=== PATIENT | female | born 1960 | race Caucasian/White ===

== ENCOUNTER → 2020-05-18 08:43 | Outpatient (BNVA) | payer BC, SELFPAY | PROVIDERS: PCP Family Medicine; Visit Provider Family Medicine | DX: I10 Essential (primary) hypertension (principal); E78.5 Hyperlipidemia, unspecified; E66.9 Obesity, unspecified | CPT/HCPCS: 80053; 80061; 82044; 82306; 85025 ==

== ENCOUNTER → 2020-07-07 08:51 | Outpatient (BNVA) | payer BC, SELFPAY | PROVIDERS: PCP Family Medicine; Visit Provider Family Medicine | DX: E78.5 Hyperlipidemia, unspecified (principal) | CPT/HCPCS: 80053 ==

== ENCOUNTER → 2020-08-09 11:01 | Outpatient (BNVA) | payer BC, SELFPAY | PROVIDERS: PCP Family Medicine; Visit Provider Obstetrics & Gynecology | DX: Z01.419 Encounter for gynecological examination (general) (routine) without abnormal findings (principal) | CPT/HCPCS: 82270 ==

== ENCOUNTER → 2020-08-18 07:22 | Outpatient (BNVA) | payer BC, SELFPAY | PROVIDERS: PCP Family Medicine; Visit Provider Family Medicine | DX: E78.5 Hyperlipidemia, unspecified (principal) | CPT/HCPCS: 80061 ==

== ENCOUNTER → 2020-08-23 15:35 | Outpatient (BNVA) | payer BC, SELFPAY | PROVIDERS: PCP Family Medicine; Visit Provider Nurse Practitioner Family | DX: Z11.59 Encounter for screening for other viral diseases (principal) | CPT/HCPCS: 87635 ==

== ENCOUNTER 2020-09-02 07:44 | Outpatient (CLI) | payer BC, SELFPAY ==
--- NOTE | 2020-09-02 07:50 | MM_ITS ---
WS: [id number] Exam: [place] [id number] Date/Time of Exam: 09/02/2020 7:55 AM Reason For Exam: SCREENING VIEWS: MLO and CC views both breasts. Comparison made with prior exam of 08/27/2018. Findings: There was no sign of mass, architectural distortion or suspicious calcification in either breast. Sca ttered fibroglandular densities. MM/[place] [id number] Impression: BI-RADS: 2-Benign FOLLOW-UP: 1 Year Follow-up This mammogram was also analyzed by the Computer Aided Detection System R2 Imag e Management Accounts Manager.
== END 2020-09-02 07:45 | disposition home or self-care (01) ==
LOC: RADSHAW 07:46
PROVIDERS: PCP Family Medicine; Visit Provider Obstetrics & Gynecology
DX: Z12.31 Encounter for screening mammogram for malignant neoplasm of breast (principal)
CPT/HCPCS: 77067

== ENCOUNTER → 2020-11-17 08:36 | Outpatient (BNVA) | payer BC, SELFPAY | PROVIDERS: PCP Family Medicine; Visit Provider Family Medicine | DX: I10 Essential (primary) hypertension (principal); M25.50 Pain in unspecified joint | CPT/HCPCS: 80053; 85025; 85651; 86038; 86140; 86431 ==

== ENCOUNTER → 2021-02-09 08:24 | Outpatient (BNVA) | payer BC, SELFPAY | PROVIDERS: PCP Family Medicine; Visit Provider Family Medicine | DX: I10 Essential (primary) hypertension (principal); E78.5 Hyperlipidemia, unspecified; L57.0 Actinic keratosis | CPT/HCPCS: 80053; 80061 ==

== ENCOUNTER → 2021-08-22 09:45 | Outpatient (BNVA) | payer BC, SELFPAY | PROVIDERS: PCP Family Medicine; Visit Provider Family Medicine | DX: I10 Essential (primary) hypertension (principal) | CPT/HCPCS: 80053; 82043 ==

== ENCOUNTER → 2021-10-02 14:54 | Outpatient (BNVA) | payer BC, SELFPAY | PROVIDERS: PCP Family Medicine; Visit Provider Family Medicine | DX: J02.9 Acute pharyngitis, unspecified (principal) | CPT/HCPCS: 87880 ==

== ENCOUNTER 2021-10-03 08:30 | Outpatient (CLI) | payer BC, SELFPAY ==
--- NOTE | 2021-10-03 08:30 | MM_ITS ---
WS: [id number] BILATERAL SCREENING DIGITAL MAMMOGRAM WITH CAD HISTORY: Z12.39 - Encounter for other screening for malignant neoplasm... COMPARISON: 05/03/2020 and 08/29/2019 Bilateral CC and MLO views submitted. Computer aided detection analyzed. Breast composition: There are scattered areas of fibroglandular density. No suspicious masses, microc alcifications or architectural distortion. MM/[place] [id number] IMPRESSION: BI-RADS: 1-Negative FOLLOW UP: 1 Year Follow-up
== END 2021-10-03 08:31 | disposition home or self-care (01) ==
LOC: RADSHAW 08:32
PROVIDERS: PCP Family Medicine; Visit Provider Obstetrics & Gynecology
DX: Z12.39 Encounter for other screening for malignant neoplasm of breast (principal)
CPT/HCPCS: 77067

== ENCOUNTER → 2022-07-17 09:46 | Outpatient (BNVA) | payer BC, SELFPAY | PROVIDERS: PCP Family Medicine; Visit Provider Family Medicine | DX: I10 Essential (primary) hypertension (principal); Z13.6 Encounter for screening for cardiovascular disorders; E78.5 Hyperlipidemia, unspecified; K21.9 Gastro-esophageal reflux disease without esophagitis; F33.42 Major depressive disorder, recurrent, in full remission | CPT/HCPCS: 80053; 80061; 82043; 85025 ==

== ENCOUNTER → 2022-10-14 10:12 | Outpatient (BNVA) | payer BC, SELFPAY | PROVIDERS: PCP Family Medicine; Visit Provider Registered Nurse Neonatal Intensive Care | DX: R50.9 Fever, unspecified (principal); J10.1 Influenza due to other identified influenza virus with other respiratory manifestations | CPT/HCPCS: 87400 ==

== ENCOUNTER → 2022-12-04 11:00 | Outpatient (BNVA) | payer BC, SELFPAY | PROVIDERS: PCP Family Medicine; Visit Provider Obstetrics & Gynecology | DX: Z12.4 Encounter for screening for malignant neoplasm of cervix (principal); Z01.419 Encounter for gynecological examination (general) (routine) without abnormal findings; D07.1 Carcinoma in situ of vulva | CPT/HCPCS: 87624 ==

== ENCOUNTER 2022-12-22 13:06 | Outpatient (CLI) | payer BC, SELFPAY ==
--- NOTE | 2022-12-22 13:17 | MM_ITS ---
WS: [id number] BILATERAL 3D TOMOSYNTHESIS DIGITAL SCREENING MAMMOGRAPHY WITH CAD CLINICAL INFORMATION: Z12.39 - Encounter for other screening for malignant neop... HISTORY: Screening mammogram. No current complaints. COMPARISON: October 03, 2021 TECHNIQUE: Bilateral CC and MLO views. FINDINGS: Scattered fibroglandular densities bilaterally. No suspicious focal mass, asymmetry, calcifications, or architectural distortion. No evidence of malignancy. MM/[place] [id number] IMPRESSION: BI-RADS: 1-Negative FOLLOW UP: 1 Year Follow-up Recommend return to annual screening mammography.
== END 2022-12-22 13:07 | disposition home or self-care (01) ==
PROVIDERS: PCP Family Medicine; Visit Provider Obstetrics & Gynecology
DX: Z12.31 Encounter for screening mammogram for malignant neoplasm of breast (principal)
CPT/HCPCS: 77063; 77067

== ENCOUNTER → 2023-02-06 09:28 | Outpatient (BNVA) | payer BC, SELFPAY | PROVIDERS: PCP Family Medicine; Visit Provider Family Medicine | DX: I10 Essential (primary) hypertension (principal); F32.9 Major depressive disorder, single episode, unspecified; K21.9 Gastro-esophageal reflux disease without esophagitis | CPT/HCPCS: 80053 ==

== ENCOUNTER → 2023-08-07 09:56 | Outpatient (BNVA) | payer BC, SELFPAY | PROVIDERS: PCP Family Medicine; Visit Provider Family Medicine | DX: I10 Essential (primary) hypertension (principal); E78.5 Hyperlipidemia, unspecified; F33.42 Major depressive disorder, recurrent, in full remission; K21.9 Gastro-esophageal reflux disease without esophagitis | CPT/HCPCS: 80053; 80061; 82043; 85025 ==

== ENCOUNTER 2024-01-17 11:12 | Outpatient (CLI) | payer BC, SELFPAY ==
--- NOTE | 2024-01-17 11:30 | MM_ITS ---
WS: [id number] SCREENING DIGITAL TOMOSYNTHESIS MAMMOGRAM WITH CAD HISTORY: Z12.31 - Encounter for screening mammogram for malignant ... COMPARISON: 12/22/2022 and 10/03/2021 Bilateral CC and MLO with tomosynthesis views submitted. Synthetic mammography reviewed. Computer aid ed detection analyzed. Breast composition: There are scattered areas of fibroglandular density. No suspicious masses, microc alcifications or architectural distortion. IMPRESSION: MM/[place] [id number] BI-RADS: 1-Negative FOLLOW UP: 1 Year Follow-up
== END 2024-01-17 11:13 | disposition home or self-care (01) ==
LOC: RAD 11:12
PROVIDERS: PCP Family Medicine; Visit Provider Obstetrics & Gynecology
DX: Z12.31 Encounter for screening mammogram for malignant neoplasm of breast (principal)
CPT/HCPCS: 77063; 77067

== ENCOUNTER 2025-03-03 15:40 | Outpatient (CLI) | payer BC, SELFPAY ==
--- NOTE | 2025-03-03 15:51 | XRR_ITS ---
PROCEDURE INFORMATION: Exam: XR Left Shoulder Exam date and time: 03/03/2025 3:57 PM Age: 64 years old Clinical indication: Pain; Shoulder; Left; Additional info: Left shoulder pain TECHNIQUE: Imaging protocol: Radiologic exam of the left shoulder. Views: 2 or more views. COMPARISON: CR XR cervical spine 3V* [id number] 03/03/2025 3:57 PM FINDINGS: Bones/joints: Alignment is normal. Joint spaces are preserved. No acute fracture. Soft tissues: Visible soft tissues are unremarkable. XR/XR shoulder LT min 2V* [id number] IMPRESSION: No acute findings.
--- NOTE | 2025-03-03 15:51 | XRR_ITS ---
PROCEDURE INFORMATION: Exam: XR Cervical Spine Exam date and time: 03/03/2025 3:57 PM Age: 64 years old Clinical indication: Radicular pain (radiculopathy); Cervical region; X2-3 weeks pain in posterior shoulder and low neck that radiates numbness and tingling down to hand; Additional info: Cervical radiculopathy TECHNIQUE: Imaging protocol: Radiologic exam of the cervical spine. Views: 2 or 3 views. COMPARISON: CR XR shoulder LT min 2V* [id number] 03/03/2025 3:57 PM FINDINGS: Bones/joints: Spinal alignment is normal. Vertebral body height is maintained. There is mild disc narrowing at C6-C7. There is mild uncovertebral spondylosis at C6-C7. There is mild lower cervical facet spondylosis. No acute fracture. Soft tissues: Visible soft tissues are unremarkable. XR/XR cervical spine 3V* [id number] IMPRESSION: Mild cervical disc degeneration.
== END 2025-03-03 15:41 | disposition home or self-care (01) ==
PROVIDERS: PCP Family Medicine; Visit Provider Family Medicine
DX: M54.12 Radiculopathy, cervical region (principal); M25.512 Pain in left shoulder; G89.29 Other chronic pain; M50.323 Other cervical disc degeneration at C6-C7 level; M47.892 Other spondylosis, cervical region
CPT/HCPCS: 72040; 73030

== ENCOUNTER → 2025-03-04 07:44 | Outpatient (BNVA) | payer BC, SELFPAY | PROVIDERS: PCP Family Medicine; Visit Provider Family Medicine | DX: G40.909 Epilepsy, unspecified, not intractable, without status epilepticus (principal); I10 Essential (primary) hypertension; R25.2 Cramp and spasm | CPT/HCPCS: 80053; 80061; 80177; 83735; 84443; 85025 ==

== ENCOUNTER 2025-03-12 20:35 | Emergency (ER) | payer BC, SELFPAY ==
--- NOTE | 2025-03-12 20:41 | ECG_ITS ---
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 Measurements Intervals [place] Rate: 50 P: 87 TN: 141 QRS: 53 QRSD: 94 T: 61 QT: 455 QTc: 419 Interpretive Statements SINUS BRADYCARDIA No previous ECG available for comparison Electronically Signed On 03-13-2025 13:36:30 CDT by Rafael Womack M.D. [id number]
[2025-03-12 20:49] VITALS: BP 186/83; PULSE 57; RESP 16; TEMP 36.7; O2SAT 99; BMI 39.4
--- NOTE | 2025-03-12 23:33 | XRR_ITS ---
PROCEDURE INFORMATION: Exam: XR Chest Exam date and time: 03/12/2025 11:35 PM Age: 64 years old Clinical indication: Pain; Chest pressure; Additional info: Chest pain TECHNIQUE: Imaging protocol: Radiologic exam of the chest. Views: 1 view. COMPARISON: CR XR cervical spine 3V* [id number] 03/03/2025 3:57 PM FINDINGS: Lungs: Unremarkable. No consolidation. Pleural spaces: Unremarkable. No pleural effusion. No pneumothorax. Heart/Mediastinum: Cardiomegaly. Bones/joints: Unremarkable. XR/XR chest 1V portable [id number] IMPRESSION: Cardiomegaly, negative for infiltrate.
--- NOTE | 2025-03-12 23:33 | ECG_ITS ---
[facility]: [facility]25-[facility]-12 Pat Name: Destinee Sanchez Department: Room: Gender: Female Clerk Funeral Detail: : 1960 Requested By: Jesus Medina Order Number: [id number] Conrad MD: Rafael Womack M.D. Measurements Intervals [place] Rate: 48 P: 86 [place]: 151 QRS: 54 QRSD: 101 T: 55 QT: 451 QTc: 405 Interpretive Statements SINUS BRADYCARDIA Compared to ECG 03/12/2025 20:44:22 No significant changes Electronically Signed On 03-13-2025 13:33:18 CDT by Rafael Womack M.D. [email or web address]
[2025-03-13 00:06] LABS: Basophils % 0.2 %; Eosinophils # 0.1 10^3/uL (0.0-0.8); Hematocrit 40.7 % (36-47); Lymphocytes # 2.6 10^3/uL (0.8-4.8); Lymphocytes % 41.9 %; Mean Corpuscular HGB Conc 33.7 g/dL (30-55); Mean Corpuscular Hemoglobin 29.8 pg (27-33); Mean Corpuscular Volume 88.7 fl (85-98); Mean Platelet Volume 10.3 fL (7.4-10.4); Monocytes # 0.4 10^3/uL (0.2-0.9); Monocytes % 6.7 %; Neutrophils # 3.16 10^3/uL (1.8-7.7); Nucleated Red Blood Cells % 0 %; Platelet Count 213 10^3/cmm (157-399); Red Blood Count 4.59 10^6/uL (3.85-5.65); Red Cell Distribution Width 12.4 % (12.1-15.1)
[2025-03-13 00:20] VITALS: PULSE 47; RESP 18; O2SAT 100
[2025-03-13 00:25] LABS: Troponin(5th) Baseline < 6 ng/L (0-10)
[2025-03-13 00:33] LABS: Alanine Aminotransferase 20 U/L (0-33); Albumin Level 4.7 g/dL (3.5-5.2); Alkaline Phosphatase 84 U/L (35-105); Aspartate Amino Transferase 19 U/L (0-32); Blood Urea Nitrogen 22 mg/dL (8-23); Calcium 9.6 mg/dL (8.5-10.5); Carbon Dioxide 25 mmol/L (22-29); Chloride 101 mmol/L (98-107); Creatinine Clr Calc Pharmacy 98.0693; Globulin 2.1 g/dL (1.3-4.6); Glomerular Filtration Rate 84.8 mL/min (90-130); Glucose 104 mg/dL (65-115); NT Pro B Type Natriuretic Pept 225 pg/mL (0-125); Osmolality Calculated 294 mOsm/kg (285-295); Sodium 140 mmol/L (136-145); Total Bilirubin 0.5 mg/dL (0.15-1.2); Total Protein 6.8 g/dL (6.6-8.7)
[2025-03-13 01:17] VITALS: PULSE 49; O2SAT 100
--- NOTE | 2025-03-13 01:30 | ECG_ITS ---
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
[2025-03-13 02:15] LABS: Troponin 5 2HR < 6.0 ng/L (0-10); Troponin 5 2HR Delta 0 ABS# (0-10)
--- NOTE | 2025-03-13 02:20 | ED_ITS ---
HPI - Chest Pain 2 General: Chief Complaint: Chest Pain Stated Complaint: CP Time Seen by Provider: 03/12/25 23:32 History of Present Illness: Patient presents emerged part with complaint of chest pain. Patient had about 5-minute episode of left-sided chest pain that radiated down the left arm. She does have chest pain quite frequently but states that normally only lasts about a minute or 2 this time lasted longer. She states that she had a stress test done several months ago but never followed up on results. She is currently asymptomatic. Related Data Home Medications ?Medication ?Instructions ?Recorded ?Confirmed aspirin 81 mg tablet,delayed 81 mg PO DAILY 02/17/20 0 03/03/25 release levetiracetam 500 mg tablet 500 mg PO BID 02/17/20 (Mei) Previous Rx's ?Medication ?Instructions ?Recorded fluoxetine 20 mg capsule See Rx Instructions .Route 0 03/03/25 .COMPLEX #90 caps hydrochlorothiazide 25 mg tablet 25 mg PO DAILY #90 ta bs 03/03/25 losartan 50 mg tablet See Rx Instructions .Route 0 03/03/25 .COMPLEX #90 tabs omeprazole 40 mg capsule,delayed See Rx Instructions . 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 Seizure disorder Reports history of petit-mal seizures. Depression Dyslipidemia Essential hypertension Surgical History S/P genital surgery (04/22/19) Wide local excision of right and left labia majora. Performed by Dr. Pacheco at [facility] in [place], [place]. Path: MERYL 3 Family History Mother Hypertension CAD (coronary artery disease) Diabetes Brother Stroke Father CAD (coronary artery disease) Social History Smoking and tobacco/nicotine status: former use of tobacco/nicotine Quit status (tobacco/nicotine): has quit using Former quit date comment: 13PY, quit in 2019 Alcohol intake: current Alcohol intake frequency: few times a month Substance/Drug Use: never Physical Exam 2 Const: COMMON NORMALS: no acute distress, average body habitus, patient oriented x3, no limitations, healthy appearing, alert and well nourished Neck/C-Spine: COMMON NORMALS: no JVD Resp: COMMON NORMALS: normal respiratory effort, No retractions, No use of accessory muscles, clear to auscultation bilaterally and percussion normal A USCULTATION: clear to auscultation bilaterally PERCUSSION: percussion normal Cardio: COMMON NORMALS: no JVD, regular rate, regular rhythm, S1 normal heart sound present, S2 normal heart sound present, No gallops present (Cardio), No clicks present (Cardio), No murmurs present (Cardio), No rub (Cardio) and Peripheral pulses 2+ throughout RATE: regular rate RHYTHM: regular rhythm HEART SOUNDS: S1 normal heart sound present and S2 normal heart sound present PERIPHERAL PULSES: Peripheral pulses 2+ throughout GI: COMMON NORMALS: Normal to inspection, nondistended, normoactive bowel sounds present, Soft to palpation, non-tender, No hepatosplenomegaly present, no masses and no bruits PALPATION: Yes Soft to palpation and Yes No hepatosplenomegaly present Neuro: COMMON NORMALS: patient oriented x3 SENSORIUM/ORIENTATION: Yes alert Course 2 Vital Signs: Vital signs: Vital Signs Temperature 98.0 F 03/12/25 20:49 Pulse Rate 49 L 03/13/25 01:17 Respiratory Rate 18 03/13/25 00:20 Blood Pressure 186/83 03/12/25 20:49 Pulse Oximetry 100 03/13/25 01:17 Oxygen Delivery Me thod Room Air 03/13/25 01:17 MDM - Chest Pain Medical Decision Making Patient with 5 minutes of chest pain earlier tonight that radiated down the left arm. Symptoms resolved prior to arrival to the ER. Patient has no symptoms here. EKG shows nonspecific ST and T wave changes no acute ischemic changes. Troponin is negative x 2. Patient has no other significant abnormality noted on labs. Discussed with patient that she needs to follow back up and get further evaluation by cardiology and to follow-up on her stress test result but at that point do not see any indication for admission. Lab Data 03/12/25 23:59 03/12/25 23:59 Radiology Impressions Chest X-Ray 03/12/25 23:33 IMPRESSION: Cardiomegaly, negative for infiltrate. Laboratory Results WBC 6.30 10^3/uL (3.29-11.43) 03/12/25 23:59 RBC 4.59 10^6/uL (3.85-5.65) 03/12/25 23:59 Hgb 13.70 g/dL (11.27-16.99) 03/12/25 23:59 Hct 40.7 % (36-47) 03/12/25 23:59 MCV 88.7 fl (85-98) 03/12/25 23:59 MCH 29.8 pg (27-33) 03/12/25 23: MCHC 33.7 g/dL (30-55) 03/12/25 23:59 RDW 12.4 % (12.1-15.1) 03/12/25 23:59 Plt Count 213 10^3/cmm (157-399) 03/12/25 23:59 MPV 10.3 fL (7.4-10.4) 03/12/25 23:59 Neut % (Auto) 50.0 % 03/12/25 23:59 Lymph % (Auto) 41.9 % 03/12/25 23:59 [place] % (Auto) 6.7 % 03/12/25 23:59 Eos % (Auto) 1.0 % 03/12/25 23:59 Baso % (Auto) 0.2 % 03/12/25 23:59 Neut # (Auto) 3.16 10^3/uL (1.8-7.7) 03/12/25 23:59 Lymph # (Auto) 2.6 10^3/uL (0.8-4.8) 03/12/25 23:59 [place] # (Auto) 0.4 10^3/uL (0.2-0.9) 03/12/25 23:59 Eos # (Auto) 0.1 10^3/uL (0.0-0.8) 03/12/25 23:59 Baso # (Auto) 0.0 10^3/uL (0.0-0.1) 03/12/25 23:59 Nucleated RBC % (auto) 0 % 03/12/25 23:59 Nucleated RBCs # 0.0 /100WBC 03/12/25 23:59 Sodium 140 mmol/L (136-145) 03/12/25 23:59 Potassium 4.0 mmol/L (3.5-5.1) 03/12/25 23:59 Chloride 101 mmol/L (98-107) 03/12/25 23:59 Carbon Dioxide 25 mmol/L (22-29) 03/12/25 23:59 Anion Gap 18.0 (5-19) 03/12/25 23:59 BUN 22 mg/dL (8-23) 03/12/25 23:59 Creatinine 0.7 mg/dL (0.5-0.9) 03/12/25 23:59 GFR Calculation 84.8 mL/min (90-130) L 03/12/25 23:59 Glucose 104 mg/dL (65-115) 03/12/25 23:59 Calculated Osmolality 294 mOsm/kg (285-295) 03/12/25 23:59 Calcium 9.6 mg/dL (8.5-10.5) 03/12/25 23:59 Total Bilirubin 0.5 mg/dL (0.15-1.2) 03/12/25 23:59 AST 19 U/L (0-32) 03/12/25 23:59 ALT 20 U/L (0-33) 03/12/25 23:59 Alkaline Phosphatase 84 U/L (35-105) 03/12/25 23:59 Troponin T Baseline < 6 ng/L (0-10) 03/12/25 23:59 Troponin T 120 Minute < 6.0 ng/L (0-10) 03/13/25 01:51 Delta Troponin T 0 ABS# (0-10) 03/13/25 01:51 NT-Pro-B Natriuret Pep 225 pg/mL (0-125) H 03/12/25 23:59 Total Protein 6.8 g/dL (6.6-8.7) 03/12/25 23:59 Albumin 4.7 g/dL (3.5-5.2) 03/12/25 23:59 Globulin 2.1 g/dL (1.3-4.6) 03/12/25 23:59 All radiology interpretation(s) finalized by discharge Discharge Plan Discharge Patient Disposition: Home Clinical Impression: Chest pain Condition: Stable Prescriptions: No Action levetiracetam [Keppra] 500 mg tablet 500 mg PO BID aspirin 81 mg tablet,delayed release (DR/EC) 81 mg PO DAILY omeprazole 40 mg capsule,delayed release(DR/EC) See Rx Instructions .ROUTE .COMPLEX Qty: 90 1RF Dose Instruction: Take 1 capsule by mouth once daily Rx Instructions: Take 1 capsule by mouth once daily fluoxetine 20 mg capsule See Rx Instructions .ROUTE .COMPLEX Qty: 90 1RF Dose Instruction: Take 1 capsule by mouth once daily Rx Instructions: Take 1 capsule by mouth once daily hydrochlorothiazide 25 mg tablet 25 mg PO DAILY Qty: 90 1RF losartan 50 mg tablet See Rx Instructions .ROUTE .COMPLEX Qty: 90 1RF Dose Instruction: Take 1 tablet by mouth once daily Rx Instructions: Take 1 tablet by mouth once daily pravastatin 80 mg tablet See Rx Instructions .ROUTE .COMPLEX Qty: 90 1RF Dose Instruction: Take 1 tablet by mouth once daily Rx Instructions: Take 1 tablet by mouth once daily Discharge Orders: Discharge ED (Routine); Ordered 03/13/25 Ordered By: Jesus Medina Referrals: Valeri Neely DO [Primary Care Provider, Family Practice] Patient Instructions: Opioid Safety, Pain Management Print Language: Egyptian Coding Level of Care Code ED Tender Labor for Corinna Valencia
[2025-03-13 02:23] VITALS: BP 185/83; PULSE 46; RESP 13; O2SAT 100
[2025-03-13 02:31] VITALS: BP 185/83; PULSE 60; O2SAT 98
== END 2025-03-13 02:33 | disposition home or self-care (01) ==
PROVIDERS: Emergency Provider Emergency Medicine; PCP Family Medicine
DX: R07.9 Chest pain, unspecified (principal); Z79.82 Long term (current) use of aspirin; Z87.891 Personal history of nicotine dependence; I10 Essential (primary) hypertension; E78.5 Hyperlipidemia, unspecified
CPT/HCPCS: 71045; 80053; 83880; 84484; 85025; 93005; 99285

== ENCOUNTER 2025-03-31 12:33 | Outpatient (CLI) | payer BC, SELFPAY ==
--- NOTE | 2025-03-31 12:40 | MM_ITS ---
WS: [id number] BILATERAL 3D TOMOSYNTHESIS DIGITAL SCREENING MAMMOGRAPHY WITH CAD CLINICAL INFORMATION: screening HISTORY: Screening mammogram. No current complaints. COMPARISON: 2023 TECHNIQUE: Bilateral CC and MLO views. FINDINGS: Scattered fibroglandular densities bilaterally. No suspicious focal mass, asymmetry, calcifications, or architectural distortion. No evidence of malignancy. MM/MM scr BI tomosynthesis [id number] IMPRESSION: DENSITY: There are scattered areas of fibroglandular density. BI-RADS: 1 - Negative. FOLLOW UP: 1 Year Follow-up Recommend return to annual screening mammography.
== END 2025-03-31 12:34 | disposition home or self-care (01) ==
PROVIDERS: PCP Family Medicine; Visit Provider Family Medicine
DX: Z12.31 Encounter for screening mammogram for malignant neoplasm of breast (principal); R92.323 Mammographic fibroglandular density, bilateral breasts
CPT/HCPCS: 77063; 77067